=== PATIENT | male | born 1965 | race Asian ===

== ENCOUNTER 2016-10-29 14:13 | Emergency (ER) | payer SELFPAY ==
[~2016-10-29] VITALS: Ht 162.6 cm; Wt 60.3 kg
[2016-10-29 14:27] VITALS: BP 137/92
== END 2016-10-29 16:08 | disposition home or self-care (01) ==
LOC: ED 14:13
DX: S61.211A Laceration without foreign body of left index finger without damage to nail, initial encounter (principal); W31.2XXA Contact with powered woodworking and forming machines, initial encounter; Y93.89 Activity, other specified; Y99.8 Other external cause status; Y92.89 Other specified places as the place of occurrence of the external cause
CPT/HCPCS: 90715; J2001